=== PATIENT | female | born 1995 | race Caucasian/White ===

== ENCOUNTER 2017-11-24 15:03 | Emergency (ER) | payer OTHER ==
[2017-11-24 15:03] VITALS: BMI 29.0
[2017-11-24 15:34] VITALS: BP 132/80; PULSE 87; RESP 18; TEMP 99.2; O2SAT 98
--- NOTE | 2017-11-24 16:08 | ED PDOC ---
Arrival/HPI - General Chief Complaint: Breast Problem Time Seen by Provider: 11/24/17 16:03 Historian: Patient - History of Present Illness Narrative History of Present Illness (Text): 11/24/17 16:03 A 22 year old female presents to the emergency department complaining of pain to right breast for the past 2 weeks. Patient reports she was seen at [facility] and had an ultrasound done which showed a lump. Patient is scheduled for a biopsy in 2 days on 11/26. She reports her pain has progressively worsened radiating to her right shoulder and neck. Patient denies any trauma, injury, fever, chills, nausea, vomiting, abdominal pain, chest pain , sin rash, abscess, shortness of breath or any other complaints. Time/Duration: Other (2 weeks) Symptom Course: Worsening Quality: Other Context: Home Past Medical History - Provider Review Nursing Documentation Reviewed: Yes - Past History Past History: No Previous - Infectious Disease Hx of Infectious Diseases: None - Reproductive Menopause: No - Past Medical History Past Medical History: No Previous - Cardiac Hx Cardiac Disorders: No - Pulmonary Hx Respiratory Disorders: No - Neurological Hx Neurological Disorder: No - HEENT Hx HEENT Disorder: No - Renal Hx Renal Disorder: No - Endocrine/Metabolic Hx Endocrine Disorders: No - Hematological/Oncological Hx Blood Disorders: No - Integumentary Hx Dermatological Disorder: No Hx Basal Cell Carcinoma: No - Musculoskeletal/Rheumatological Hx Musculoskeletal Disorders: No - Gastrointestinal Hx Gastrointestinal Disorders: No - Genitourinary/Gynecological Hx Genitourinary Disorders: No - Psychiatric Hx Psychophysiologic Disorder: Yes Hx Depression: Yes Hx Emotional Abuse: No Hx Physical Abuse: No Hx Substance Use: No - Past Surgical History Past Surgical History: No Previous - Anesthesia Hx Anesthesia: No - Suicidal Assessment Feels Threatened In Home Enviroment: No Family/Social History - Physician Review Nursing Documentation Reviewed: Yes Family/Social History: No Known Family HX Smoking Status: Never Smoked Hx Alcohol Use: No Hx Substance Use: No Hx Substance Use Treatment: No Allergies/Home Meds Allergies/Adverse Reactions: Allergies No Known Allergies Allergy (Verified 11/24/17 15:23) Review of Systems - Physician Review All systems were reviewed & negative as marked: Yes - Review of Systems Constitutional: absent: Fevers, Night Sweats Respiratory: absent: SOB Cardiovascular: absent: Chest Pain Gastrointestinal: absent: Abdominal Pain, Nausea, Vomiting Musculoskeletal: Other (pain to right breast, radiating to right shoulder and neck) Physical Exam Vital Signs Reviewed: Yes Vital Signs Temp Pulse Resp BP Pulse Ox 11/24/17 15:18 99.2 F 87 18 132/80 98 11/24/17 15:03 99.2 F 87 18 132/80 98 Temperature: Afebrile Blood Pressure: Normal Pulse: Regular Respiratory Rate: Normal Appearance: Positive for: Well-Appearing, Non-Toxic, Comfortable Pain Distress: None Mental Status: Positive for: Alert and Oriented X 3 - Systems Exam Head: Present: Atraumatic, Normocephalic Pupils: Present: PERRL Extroacular Muscles: Present: EOMI Conjunctiva: Present: Normal Neck: Present: Normal Range of Motion, Other (right trapezius tenderness. no vertebral point tenderness. no vrtebral step off). No: MIDLINE TENDERNESS, Paraspinal Tenderness Respiratory/Chest: Present: Clear to Auscultation, Good Air Exchange. No: Respiratory Distress, Accessory Muscle Use Cardiovascular: Present: Regular Rate and Rhythm, Normal S1, S2. No: Murmurs Breast/Axillary: Present: Other (Diffuse fibrocystic breast ,right greater than left. No breast tenderness, No dimpling of the skin. No abscess. No cellulitis. No assymetry). No: Erythema, Masses, Nipple Discharge ( no nipple retraction, no nipple discharge, no tenderness, no mass, no abscess), Swelling, Tender to Palpation Upper Extremity: Present: Normal Inspection, Normal ROM (in right shoulder), NORMAL PULSES. No: Cyanosis, Edema, Tenderness Neurological: Present: GCS=15, CN II-XII Intact, Speech Normal Skin: Present: Warm, Dry, Normal Color. No: Rashes Psychiatric: Present: Alert, Oriented x 3, Normal Insight, Normal Concentration Medical Decision Making ED Course and Treatment: 11/24/17 16:03 Impression: A 22 year old female with pain to right breast Plan: -- Tylenol and Valium -- Reassess and disposition Progress Notes: I have discussed the plan with the patient, who expresses understanding. Patient in agreement with plan to be discharged home. Patient is stable for discharge. She is scheduled for an outpatient biopsy in 2 days. Patient was instructed to follow up with PMD or return if symptoms worsen or new concerning symptoms arise. Re-evaluation Time: 18:30 Reassessment Condition: Re-examined, Improved - Medication Orders Current Medication Orders: Discontinued Medications Acetaminophen (Tylenol 325mg Tab) 650 mg PO STAT STA Stop: 11/24/17 16:07 Last Admin: 11/24/17 16:31 Dose: 650 mg MAR Pain/Vitals Document 11/24/17 16:31 MS (Rec: 11/24/17 16:32 MS [facility] [id number]) Pain Reassessment Is This A Pain ReAssessment? No Sleep Is patient sleeping during reassessment? No Presence of Pain Presence of Pain Yes Pain Scale Used Pain Scale Used Numeric Location Pain Location Body Site Chest Description Intermittent Intensity 8 Scale Used Numeric Pain Behavior Guarding Diazepam (Valium) 2 mg PO ONCE ONE PRN Reason: Protocol Stop: 11/24/17 16:07 Last Admin: 11/24/17 16:29 Dose: 2 mg - Scribe Statement The provider has reviewed the documentation as recorded by the Beckyibrobert Huerta Provider Scribe Attestation: All medical record entries made by the Scribe were at my direction and personally dictated by me. I have reviewed the chart and agree that the record accurately reflects my personal performance of the history, physical exam, medical decision making, and the department course for this patient. I have also personally directed, reviewed, and agree with the discharge instructions and disposition. Disposition/Present on Arrival - Present on Arrival Any Indicators Present on Arrival: No History of DVT/PE: No History of Uncontrolled Diabetes: No Urinary Catheter: No History of Decub. Ulcer: No History Surgical Site Infection Following: None - Disposition Have Diagnosis and Disposition been Completed?: Yes Diagnosis: Trapezius muscle spasm Disposition: HOME/ ROUTINE Disposition Time: 18:30 Condition: GOOD Discharge Instructions (ExitCare): Muscle Spasms (DC) Additional Instructions: Call private doctor for follow up visit in 1-2 days. Take medication at bedtime for muscle relaxer. Take OTC Tylenol for pain as needed. Return to [facility] if symptoms worsen. Prescriptions: diaZEpam [Valium] 5 mg PO DAILY #5 tab Referrals: Jin JARVIS-LISSA,PIERCE Leon [Primary Care Provider] - Follow up with primary Forms: [employer] (Turkmen)
== END 2017-11-24 16:38 | disposition home or self-care (01) ==
LOC: ED 15:03
DX: M62.838 Other muscle spasm (principal)

== ENCOUNTER 2018-07-08 12:47 | Emergency (ER) | payer OTHER ==
[2018-07-08 13:15] VITALS: RESP 19; BMI 27.4
--- NOTE | 2018-07-08 13:29 | ED PDOC ---
Arrival/HPI - General Chief Complaint: Chest Pain Time Seen by Provider: 07/08/18 13:01 Historian: Patient - History of Present Illness Narrative History of Present Illness (Text): 07/08/18 13:23 23 year old female, with no significant past medical history, presents to the Emergency department complaining of left sided chest pain since 8am this morning. Patient informs having intermittent palpitations for past month which developed into sharp chest pain this morning prompting her to present to the Emergency department for medical evaluation. Patient denies any other associated medical complaints. Patient denies any fever, chills, nausea, vomiting, diarrhea, abdominal pain, shortness of breath, neck pain, back pain, headache, dizziness or any other complaints. Patient denies any heavy lifting or injury to the area. PMD: NONE Time/Duration: Other (8am this morning) Symptom Onset: Gradual Symptom Course: Unchanged Quality: Aching Activities at Onset: Light Context: Home Past Medical History - Provider Review Nursing Documentation Reviewed: Yes - Past History Past History: No Previous - Infectious Disease Hx of Infectious Diseases: None - Past Medical History Past Medical History: No Previous - Cardiac Hx Cardiac Disorders: Yes Hx Cardiac Arrhythmia: Yes - Pulmonary Hx Respiratory Disorders: No - Neurological Hx Neurological Disorder: No - HEENT Hx HEENT Disorder: No - Renal Hx Renal Disorder: No - Endocrine/Metabolic Hx Endocrine Disorders: No - Hematological/Oncological Hx Blood Disorders: No - Integumentary Hx Dermatological Disorder: No Hx Basal Cell Carcinoma: No - Musculoskeletal/Rheumatological Hx Musculoskeletal Disorders: No - Gastrointestinal Hx Gastrointestinal Disorders: No - Genitourinary/Gynecological Hx Genitourinary Disorders: No - Psychiatric Hx Psychophysiologic Disorder: Yes Hx Anxiety: Yes Hx Depression: Yes Hx Emotional Abuse: No Hx Physical Abuse: No Hx Substance Use: No - Past Surgical History Past Surgical History: No Previous - Surgical History Other/Comment: Removal of lump from right breast - Anesthesia Hx Anesthesia: No - Suicidal Assessment Feels Threatened In Home Enviroment: No Family/Social History - Physician Review Nursing Documentation Reviewed: Yes Family/Social History: No Known Family HX Smoking Status: Never Smoked Hx Alcohol Use: No Hx Substance Use: No Hx Substance Use Treatment: No Allergies/Home Meds Allergies/Adverse Reactions: Allergies No Known Allergies Allergy (Verified 11/24/17 15:23) Review of Systems - Physician Review All systems were reviewed & negative as marked: Yes - Review of Systems Constitutional: absent: Fevers Respiratory: absent: SOB Cardiovascular: Chest Pain Gastrointestinal: absent: Abdominal Pain, Diarrhea, Nausea, Vomiting Musculoskeletal: absent: Back Pain, Neck Pain Neurological: absent: Headache, Dizziness Physical Exam Vital Signs Reviewed: Yes Vital Signs Temp Pulse Resp BP Pulse Ox 07/08/18 13:13 97.9 F 76 19 121/68 100 Temperature: Afebrile Blood Pressure: Normal Pulse: Regular Respiratory Rate: Normal Appearance: Positive for: Well-Appearing, Non-Toxic, Comfortable Pain Distress: None Mental Status: Positive for: Alert and Oriented X 3 - Systems Exam Head: Present: Atraumatic, Normocephalic Pupils: Present: PERRL Extroacular Muscles: Present: EOMI Conjunctiva: Present: Normal Mouth: Present: Moist Mucous Membranes Neck: Present: Normal Range of Motion Respiratory/Chest: Present: Clear to Auscultation, Good Air Exchange, Tender to Palpation (reproducible left sided chest wall tenderness to palpation). No: Respiratory Distress, Accessory Muscle Use Cardiovascular: Present: Regular Rate and Rhythm, Normal S1, S2. No: Murmurs Abdomen: No: Tenderness, Distention, Peritoneal Signs Back: Present: Normal Inspection Upper Extremity: Present: Normal Inspection. No: Cyanosis, Edema Lower Extremity: Present: Normal Inspection. No: Edema Neurological: Present: GCS=15, CN II-XII Intact, Speech Normal Skin: Present: Warm, Dry, Normal Color. No: Rashes Psychiatric: Present: Alert, Oriented x 3, Normal Insight, Normal Concentration Medical Decision Making ED Course and Treatment: 07/08/18 13:30 Impression: 23 year old female presents to the Emergency department complaining of left sided chest pain. Differential Diagnosis included but are not limited to: Chest pain r/o ACS unlikey atypcial pain r/o metabolic etiology Plan: -- EKG -- Labs -- Chest X-ray -- Tylenol -- Urinalysis -- Reassess and disposition Prior Visits: Notes and results from previous visits were reviewed. Progress Notes: 07/08/18 13:30 EKG: Ordered, reviewed, and independently interpreted the EKG. Rate : 58 BPM Rhythm : Sinus bradycardia Interpretation : No ST-segment elevations or depressions, no T-wave inversions, normal intervals. 07/08/18 13:30 On physical exam, patient in PERC negative. There is reproducible left sided chest wall tenderness most consistent with musculoskeletal pain. 07/08/18 17:40 cxr neg, perc neg pt well appearing. advise outpt fu. - RAD Interpretation Radiology Orders: 07/08/18 13:21 CXR [CHEST TWO VIEWS (PA/LAT)] [RAD] Stat - Scribe Statement The provider has reviewed the documentation as recorded by the Scribe Tyree Brown. Provider Scribe Attestation: All medical record entries made by the Scribe were at my direction and personally dictated by me. I have reviewed the chart and agree that the record accurately reflects my personal performance of the history, physical exam, medical decision making, and the department course for this patient. I have also personally directed, reviewed, and agree with the discharge instructions and disposition. Disposition/Present on Arrival - Present on Arrival Any Indicators Present on Arrival: No History of DVT/PE: No History of Uncontrolled Diabetes: No Urinary Catheter: No History of Decub. Ulcer: No History Surgical Site Infection Following: None - Disposition Have Diagnosis and Disposition been Completed?: Yes Diagnosis: Chest pain Disposition: HOME/ ROUTINE Disposition Time: 04:00 Condition: STABLE Discharge Instructions (ExitCare): Chest Pain, Chest Pain (ED) Additional Instructions: follow up with your doctor/clinic. return to er with worsening symptoms Referrals: [facility] [Outside] - Follow up with primary [facility] [Outside] - Follow up with primary Forms: [employer] (Hebrew)
[2018-07-08 14:02] LABS: BASO % 0.4 % (0.0-3.0); EOS % 1.6 % (1.5-5.0); GRAN % 61.4 % (50.0-68.0); HEMOGLOBIN 11.1 g/dL (12.0-16.0); LYMPH % 30.2 % (22.0-35.0); MEAN CELL VOLUME 75.7 fl (80.0-105.0); MEAN CORPUSCULAR HEMOGLOBIN 24.1 pg (25.0-35.0); MEAN CORPUSCULAR HGB CONC 31.9 g/dl (31.0-37.0); MEAN PLATELET VOLUME 9.6 fl (7.0-11.0); MONO % 6.4 % (1.0-6.0); RBC 4.6 10^6/uL (3.5-6.1); WHITE BLOOD COUNT 10.7 10^3/ul (4.5-11.0)
[2018-07-08 14:03] LABS: BASO # 0.04 K/mm3 (0.0-2.0); EOS # 0.2 (0.0-0.7); GRAN # 6.58 (1.4-6.5); LYMPH # 3.2 (1.2-3.4); MONO # 0.7 (0.1-0.6)
[2018-07-08 14:06] LABS: ALB/GLOB RATIO 1.3 (1.1-1.8); ALBUMIN 4.4 g/dL (3.0-4.8); ALT/SGPT 29 U/L (7-56); AST/SGOT 30 U/L (14-36); BLOOD UREA NITROGEN 12 mg/dL (7-21); CALCIUM 9.6 mg/dL (8.4-10.5); GFR NON-AFRICAN AMERICAN > 60; INR 1.19; PARTIAL THROMBOPLASTIN TIME 30.2 Seconds (25.1-36.5); PROTHROMBIN TIME 13.7 SECONDS (9.4-12.5)
[2018-07-08 14:26] LABS: PH,URINE 6.5 (4.7-8.0); URINE BILIRUBIN NEGATIVE (NEGATIVE); URINE BLOOD NEGATIVE (NEGATIVE); URINE GLUCOSE (UA) NEGATIVE (NEGATIVE); URINE LEUKOCYTE ESTERASE TRACE Leu/uL (NEGATIVE); URINE PROTEIN NEGATIVE mg/dL (<30 mg/dL); URINE UROBILINOGEN 0.2 E.U./dL (<1 E.U./dL)
[2018-07-08 14:29] LABS: URINE APPEARANCE CLEAR (CLEAR); URINE COLOR YELLOW (YELLOW)
[2018-07-08 14:31] LABS: HCG,QUALITATIVE URINE NEGATIVE (NEGATIVE)
[2018-07-08 14:34] LABS: URINE BACTERIA MOD (NEG); URINE RBC 0 - 2 /hpf (0-2)
--- NOTE | 2018-07-08 15:45 | RAD ---
Date of service: 07/08/2018 HISTORY: cp COMPARISON: No prior. TECHNIQUE: Chest PA and lateral FINDINGS: LUNGS: No active pulmonary disease. PLEURA: No significant pleural effusion identified. No pneumothorax apparent. CARDIOVASCULAR: Normal. OSSEOUS STRUCTURES: No significant abnormalities. VISUALIZED UPPER ABDOMEN: Normal. OTHER FINDINGS: None. IMPRESSION: No active disease.
[2018-07-08 16:06] VITALS: BP 119/80; PULSE 80; TEMP 98; O2SAT 98
--- NOTE | 2018-07-09 14:10 | CARD ---
APPROVED REPORT Date of service: 07/08/2018 EKG Measurement Heart [id number] <Conclusion> Sinus bradycardia Otherwise normal ECG
== END 2018-07-08 16:06 | disposition home or self-care (01) ==
LOC: ED 12:47
DX: R07.9 Chest pain, unspecified (principal)

== ENCOUNTER 2018-08-14 14:01 | Emergency (ER) | payer OTHER ==
[2018-08-14 14:02] VITALS: BMI 27.4
[2018-08-14 14:23] VITALS: RESP 18
--- NOTE | 2018-08-14 14:55 | ED PDOC ---
Arrival/HPI - General Chief Complaint: Lower Extremity Problem/Injury Time Seen by Provider: 08/14/18 14:08 Historian: Patient - History of Present Illness Narrative History of Present Illness (Text): 08/14/18 14:55 23 year old female, with no significant past medical history, presents complaining of left knee pain that began 1-2 weeks ago after continuously running on a treadmill. Patient reports the pain is constant and is unable to bare weight on it. She reports when she goes up the stairs, her knee rachelle and gives out at times. Patient reports an injury to her left knee in the past, but never had it treated or followed up. Patient denies any fever, chills, chest pain, shortness of breath, back pain, neck pain, headache, dizziness, or any other complaints/injuries. PMD: None Time/Duration: Other (1-2 weeks ) Symptom Onset: Sudden Symptom Course: Unchanged Activities at Onset: Light Context: Other (running) Past Medical History - Provider Review Nursing Documentation Reviewed: Yes - Past History Past History: No Previous - Infectious Disease Hx of Infectious Diseases: None - Past Medical History Past Medical History: No Previous - Cardiac Hx Cardiac Disorders: Yes Hx Cardiac Arrhythmia: Yes - Pulmonary Hx Respiratory Disorders: No - Neurological Hx Neurological Disorder: No - HEENT Hx HEENT Disorder: No - Renal Hx Renal Disorder: No - Endocrine/Metabolic Hx Endocrine Disorders: No - Hematological/Oncological Hx Blood Disorders: No - Integumentary Hx Dermatological Disorder: No Hx Basal Cell Carcinoma: No - Musculoskeletal/Rheumatological Hx Musculoskeletal Disorders: No - Gastrointestinal Hx Gastrointestinal Disorders: No - Genitourinary/Gynecological Hx Genitourinary Disorders: No - Psychiatric Hx Psychophysiologic Disorder: Yes Hx Anxiety: Yes Hx Depression: Yes Hx Emotional Abuse: No Hx Physical Abuse: No Hx Substance Use: No - Past Surgical History Past Surgical History: No Previous - Surgical History Other/Comment: Removal of lump from right breast - Anesthesia Hx Anesthesia: No - Suicidal Assessment Feels Threatened In Home Enviroment: No Family/Social History - Physician Review Nursing Documentation Reviewed: Yes Family/Social History: No Known Family HX Smoking Status: Never Smoked Hx Alcohol Use: No Hx Substance Use: No Hx Substance Use Treatment: No Allergies/Home Meds Allergies/Adverse Reactions: Allergies No Known Allergies Allergy (Verified 08/14/18 14:22) Home Medications: Home Meds Medication Instructions Recorded Confirmed No Known Home Med 08/14/18 08/14/18 Review of Systems - Physician Review All systems were reviewed & negative as marked: Yes - Review of Systems Constitutional: absent: Fevers, Other (Chills) Respiratory: absent: SOB Cardiovascular: absent: Chest Pain Musculoskeletal: Other (left knee pain). absent: Back Pain, Neck Pain Neurological: absent: Headache, Dizziness Physical Exam - Physical Exam Narrative Physical Exam (Text): Gen: VS reviewed, alert, well developed, well nourished, nontoxic, mild distress. ENT: normal pharynx. Eye: EOMI, PERRL. Neck: no JVD, supple, no adenopathy. CV: regular rate, regular rhythm, no rubs, no murmur, no gallops, S1, S2, pulses equal and strong. Pulm: no distress, clear to auscultation, no wheeze, no rhonchi, breath sounds equal, no rales. Abd: soft, nontender, no guarding, no rebound, no rigidity, normal bowel sounds. Ext: No azalea tenderness, FROM at the knee. No significant effusion, Negative Davian's Sign, No ligamentous instability, Negative valgus and varus stress, No edema. Skin: good color, no rash, no cyanosis. Psych: responds appropriately to questions, normal affect. Neuro: oriented x 3, CN2-12 intact grossly, motor intact, sensation intact. Vital Signs Reviewed: Yes Vital Signs Temp Pulse Resp BP Pulse Ox 08/14/18 14:20 99 F 73 18 117/64 98 Temperature: Afebrile Blood Pressure: Normal Pulse: Regular Respiratory Rate: Normal Medical Decision Making ED Course and Treatment: 08/14/18 14:55 Impression: 23 year old female presents complaining of constant left knee pain that began 1- 2 weeks ago after running on the treadmill. Plan: -- POC Urine Test -- Knee with Patella Left 3V X-ray -- Reassess and disposition Progress Notes: 08/14/18 16:03 on repeat exam, patient noted to have a positive apprehension sign, suggestive patellofemoral syndrome. patient encouraged to follow up with ortho, strengthen quads in the meantime, relative rest but can continue activities as tolerated, nsaids prn. there are no s/s of DVT 08/14/18 16:12 - RAD Interpretation Radiology Orders: 08/14/18 14:50 KNEE WITH PATELLA LEFT 3 VIEW [RAD] Stat Articulation Officer: Radiologist - Scribe Statement The provider has reviewed the documentation as recorded by the Betsy Youngblood Provider Scribe Attestation: All medical record entries made by the Beckyibrobert were at my direction and personally dictated by me. I have reviewed the chart and agree that the record accurately reflects my personal performance of the history, physical exam, medical decision making, and the department course for this patient. I have also personally directed, reviewed, and agree with the discharge instructions and disposition. Disposition/Present on Arrival - Present on Arrival Any Indicators Present on Arrival: No History of DVT/PE: No History of Uncontrolled Diabetes: No Urinary Catheter: No History of Decub. Ulcer: No History Surgical Site Infection Following: None - Disposition Have Diagnosis and Disposition been Completed?: Yes Diagnosis: Knee pain, Patellofemoral syndrome Disposition: HOME/ ROUTINE Disposition Time: 16:02 Patient Plan: Discharge Patient Problems: Current Active Problems Problem Status Onset Knee pain Acute Patellofemoral syndrome Acute Condition: STABLE Discharge Instructions (ExitCare): Patellofemoral Pain (DC), Knee Pain Additional Instructions: Follow up with the clinical informatics specialist or sports medicine specialists. JOSEFA SIMONS, thank you for letting us take care of you today. Your provider was Dr. David Dunn and you were treated for left knee pain. The emergency medical care you received today was directed at your acute symptoms. If you were prescribed any medication, please fill it and take as directed. It may take several days for your symptoms to resolve. Return to the Emergency Department if your symptoms worsen, do not improve, or if you have any other problems. Please contact your doctor or call one of the physicians/clinics you have been referred to that are listed on the Patient Visit Information form that is included in your discharge packet. Bring any paperwork you were given at discharge with you along with any medications you are taking to your follow up visit. Our treatment cannot replace ongoing medical care by a primary care provider outside of the emergency department. Thank you for allowing the [facility] team to be part of your care today. If you had an X-Ray or CT scan: A Radiologist will review the ED reading if any change in treatment is needed we will contact you. If you had a blood, urine, or wound culture: It will take several days for the results, if any change in treatment is needed we will contact you. If you had an STI test: It will take 48 hours for the results. Please call after 1 week if you have not heard back. Referrals: [facility] [Outside] - Follow up with primary Marisa Carpio MD [Staff Provider] - Follow up with primary Forms: [email or web address] (Albanian)
[2018-08-14 16:08] VITALS: BP 115/63; PULSE 70; TEMP 98.9; O2SAT 100
--- NOTE | 2018-08-14 16:33 | RAD ---
Date of service: 08/14/2018 PROCEDURE: Left Knee Radiographs. HISTORY: Pain. COMPARISON: None. FINDINGS: BONES: Normal. No fracture. JOINTS: Normal. No osteoarthritis. JOINT EFFUSION: There is a small suprapatellar joint effusion. OTHER FINDINGS: None. IMPRESSION: No acute fracture or dislocation. Small suprapatellar joint effusion.
== END 2018-08-14 16:10 | disposition home or self-care (01) ==
LOC: ED 14:01
DX: M22.2X2 Patellofemoral disorders, left knee (principal)

== ENCOUNTER 2018-12-22 17:51 | Emergency (ER) | payer OTHER ==
[2018-12-22 18:11] VITALS: RESP 18; BMI 27.9
--- NOTE | 2018-12-22 18:25 | ED PDOC ---
Arrival/HPI - General Chief Complaint: Abdominal Pain Historian: Patient - History of Present Illness Narrative History of Present Illness (Text): 12/22/18 18:20 23 y/o female, no significant pmh, nkda, c/o constipation x 2 days. pt. stated that she has constipation x 2 days, last bowel movement yesterday, hard and small, started to become constipated after the low carb diet and low fiber diet, cramping pain, on and off, no nausea/vomiting, eating and drinking well, no flank pain, no diarrhea, no abdominal surgical history, no other medical or psychological complaints. Past Medical History - Provider Review Nursing Documentation Reviewed: Yes - Past History Past History: No Previous - Infectious Disease Hx of Infectious Diseases: None - Past Medical History Past Medical History: No Previous - Cardiac Hx Cardiac Disorders: Yes - Pulmonary Hx Respiratory Disorders: No - Neurological Hx Neurological Disorder: No - HEENT Hx HEENT Disorder: No - Renal Hx Renal Disorder: No - Endocrine/Metabolic Hx Endocrine Disorders: No - Hematological/Oncological Hx Anemia: Yes - Integumentary Hx Dermatological Disorder: No Hx Basal Cell Carcinoma: No - Musculoskeletal/Rheumatological Hx Musculoskeletal Disorders: No - Gastrointestinal Hx Gastrointestinal Disorders: No - Genitourinary/Gynecological Hx Genitourinary Disorders: No - Psychiatric Hx Psychophysiologic Disorder: Yes Hx Anxiety: Yes Hx Depression: Yes Hx Emotional Abuse: No Hx Physical Abuse: No Hx Substance Use: No - Past Surgical History Past Surgical History: No Previous - Surgical History Other/Comment: Removal of lump from right breast - Anesthesia Hx Anesthesia: No - Suicidal Assessment Feels Threatened In Home Enviroment: No Family/Social History - Physician Review Nursing Documentation Reviewed: Yes Family/Social History: Unknown Family HX Smoking Status: Never Smoked Hx Alcohol Use: No Hx Substance Use: No Hx Substance Use Treatment: No Allergies/Home Meds Allergies/Adverse Reactions: Allergies No Known Allergies Allergy (Verified 12/22/18 18:15) Review of Systems - Review of Systems Constitutional: absent: Fatigue, Fevers Eyes: absent: Vision Changes ENT: absent: Hearing Changes Respiratory: absent: SOB, Cough Cardiovascular: absent: Chest Pain, Syncope Gastrointestinal: Abdominal Pain, Constipation. absent: Diarrhea, Nausea, Vomiting Musculoskeletal: absent: Arthralgias, Back Pain Skin: absent: Rash, Pruritis Neurological: absent: Headache, Dizziness Psychiatric: absent: Anxiety, Depression, Suicidal Ideation Physical Exam Vital Signs Reviewed: Yes Vital Signs Temp Pulse Resp BP Pulse Ox 12/22/18 18:03 98.9 F 77 18 118/68 100 Temperature: Afebrile Blood Pressure: Normal Pulse: Regular Respiratory Rate: Normal Appearance: Positive for: Well-Appearing, Non-Toxic, Comfortable Pain Distress: Moderate Mental Status: Positive for: Alert and Oriented X 3 - Systems Exam Head: Present: Atraumatic, Normocephalic Pupils: Present: PERRL Extroacular Muscles: Present: EOMI Conjunctiva: Present: Normal Mouth: Present: Moist Mucous Membranes Neck: Present: Normal Range of Motion Respiratory/Chest: Present: Clear to Auscultation, Good Air Exchange. No: Respiratory Distress, Accessory Muscle Use Cardiovascular: Present: Regular Rate and Rhythm, Normal S1, S2. No: Murmurs Abdomen: Present: Normal Bowel Sounds. No: Tenderness, Distention, Peritoneal Signs, Rebound, Guarding Back: Present: Normal Inspection Upper Extremity: Present: Normal Inspection. No: Cyanosis, Edema Lower Extremity: Present: Normal Inspection. No: Edema Neurological: Present: GCS=15, CN II-XII Intact, Speech Normal, Motor Func Grossly Intact, Normal Cerebellar Funct, Gait Normal, Memory Normal Skin: Present: Warm, Dry, Normal Color. No: Rashes Psychiatric: Present: Alert, Oriented x 3, Normal Insight, Normal Concentration Medical Decision Making ED Course and Treatment: 12/22/18 18:27 -toradol -xray -UA -Observe and reassess 12/22/18 19:41 -Urine hcg is negative -UA show no UTI -Abd xray ER wet read: no obstruction but there is stool in the colon. -Pt. feels relief with the medication given in the ER, pain resolved, tolerating po solid and fluid, due to the small hard stool and constipation HPI, will give magnesium citrate and pepcid. -Discharge home with magnesium citrate, pepcid, tylenol, high fiber diet, stay hydrated, follow up with your own pmd and GI within 2 days, return to the ER for any new or worsening signs or symptoms. - RAD Interpretation Radiology Orders: 12/22/18 18:19 ABD 2 VIEWS (FLAT/UP OR DECUB) [RAD] Stat Date of service: 12/22/2018 HISTORY: constipation COMPARISON: None available. FINDINGS: BOWEL: Normal. No obstruction. No free air. BONES: Normal. OTHER FINDINGS: None. IMPRESSION: No active disease. Director Of Restaurants: Radiologist - PA / [employer]AND [employer]SERV[employer] SPECIALIST / Resident Statement MD/DO has reviewed & agrees with the documentation as recorded. Disposition/Present on Arrival - Present on Arrival Any Indicators Present on Arrival: No History of DVT/PE: No History of Uncontrolled Diabetes: No Urinary Catheter: No History of Decub. Ulcer: No History Surgical Site Infection Following: None - Disposition Have Diagnosis and Disposition been Completed?: Yes Diagnosis: Constipation, Abdominal pain Disposition: HOME/ ROUTINE Disposition Time: 19:42 Patient Plan: Discharge Condition: IMPROVED Additional Instructions: -Discharge home with magnesium citrate, pepcid, tylenol, high fiber diet, stay hydrated, follow up with your own pmd and GI within 2 days, return to the ER for any new or worsening signs or symptoms. Prescriptions: Acetaminophen [Tylenol] 2 cap PO QID PRN #30 capsule PRN Reason: Other Famotidine [Pepcid] 20 mg PO BID #20 tab Referrals: Alexander Moody MD [Staff Provider] - Follow up with primary [facility] at [facility] [Outside] - Follow up with primary Forms: [facility] (Hebrew), WORK NOTE
[2018-12-22 19:34] LABS: PH,URINE 7.5 (4.7-8.0); URINE APPEARANCE CLEAR (CLEAR); URINE BILIRUBIN SMALL (NEGATIVE); URINE BLOOD SMALL (NEGATIVE); URINE COLOR YELLOW (YELLOW); URINE GLUCOSE (UA) NEGATIVE (NEGATIVE); URINE LEUKOCYTE ESTERASE NEGATIVE Leu/uL (NEGATIVE); URINE PROTEIN NEGATIVE mg/dL (<30 mg/dL)
[2018-12-22] MEDS ORDERED: Magnesium Citrate Oral SOL (300 ml) PO ONE (19:38)
[2018-12-22 19:41] LABS: URINE BACTERIA FEW /hpf; URINE RBC 0 - 2 /hpf (0-2); URINE WBC 0 - 2 /hpf (0-6)
[2018-12-22 21:00] VITALS: BP 120/70; PULSE 78; TEMP 98.2; O2SAT 99
--- NOTE | 2018-12-23 10:10 | RAD ---
Date of service: 12/22/2018 HISTORY: constipation COMPARISON: None available. FINDINGS: BOWEL: Normal. No obstruction. No free air. BONES: Normal. OTHER FINDINGS: None. IMPRESSION: No active disease.
== END 2018-12-22 20:08 | disposition home or self-care (01) ==
LOC: ED 17:51
DX: K59.00 Constipation, unspecified (principal); R10.9 Unspecified abdominal pain
CPT/HCPCS: 74019; 81001; 81025; 96372; 99283; J1885